=== PATIENT | female | born 1990 | race Caucasian/White ===

== ENCOUNTER 2021-05-23 13:44 | Emergency (ER) | payer OTHER ==
[2021-05-23 15:29] VITALS: RESP 18; TEMP 98.7
--- NOTE | 2021-05-23 16:33 | ED ---
General Adult HPI - General Source: patient, RN notes reviewed Mode of arrival: ambulatory Limitations: no limitations <Joaquin Moya - Last Filed: 05/23/21 15:51> <Scarlett Nicholas - Last Filed: 05/23/21 22:09> - General Stated complaint: mental health Time Seen by Provider: 05/23/21 15:12 - History of Present Illness Initial comments: 30-year-old female presents emergency Department with chief complaint of needing psychiatric evaluation. Patient states that she was recently some Lexapro for anxiety which she states is making her symptoms worse to point where she starting to thoughts of harming herself she states she would never do this presents or why she is having thoughts she states she feels very unsafe at home she's having severe mental breakdown. Patient denies illicit drug use or alcohol abuse. Patient states she had issues with Zoloft in the past the cause similar reaction. Patient states she needs to be on something is when she is not on medications her anxiety is unbearable. (Joaquin Moya) - Related Data Home Medications Medication Instructions Recorded Confirmed ALPRAZolam [Xanax] 0.25 mg PO BID PRN 05/23/21 05/23/21 Albuterol Sulfate [Proair Hfa] 2 puff INHALATION RT-Q4H PRN 05/23/21 05/23/21 Escitalopram [Lexapro] 5 mg PO HS@2000 05/23/21 05/23/21 Allergies Allergy/AdvReac Type Severity Reaction Status Date / Time No Known Allergies Allergy Verified 05/23/21 16:27 Review of Systems ROS Other: All systems not noted in ROS Statement are negative. <Joaquin Moya - Last Filed: 05/23/21 15:51> ROS Other: All systems not noted in ROS Statement are negative. <Scarlett Nicholas - Last Filed: 05/23/21 22:09> ROS Statement: Those systems with pertinent positive or pertinent negative responses have been documented in the HPI. Past Medical History Past Medical History: No Reported History Additional Past Medical History / Comment(s): has had heart concerns in the past, but reports being cleared by cardiology History of Any Multi-Drug Resistant Organisms: None Reported Additional Past Surgical History / Comment(s): kidney surger at age 5 Past Psychological History: Anxiety Smoking Status: Never smoker Past Alcohol Use History: Occasional Past Drug Use History: None Reported <GriffinJoaquin M - Last Filed: 05/23/21 15:51> General Exam Limitations: no limitations General appearance: alert, in no apparent distress, anxious Head exam: Present: atraumatic, normocephalic, normal inspection Eye exam: Present: normal appearance, PERRL, EOMI. Absent: scleral icterus, conjunctival injection, periorbital swelling ENT exam: Present: normal exam, normal oropharynx, mucous membranes moist Neck exam: Present: normal inspection, full ROM. Absent: tenderness, meningismus, lymphadenopathy Respiratory exam: Present: normal lung sounds bilaterally. Absent: respiratory distress, wheezes, rales, rhonchi, stridor Cardiovascular Exam: Present: normal rhythm, tachycardia, normal heart sounds. Absent: systolic murmur, diastolic murmur, rubs, gallop, clicks Neurological exam: Present: alert, oriented X3 Psychiatric exam: Present: anxious Skin exam: Present: warm, dry, intact, normal color. Absent: rash <GriffinJoaquin M - Last Filed: 05/23/21 15:51> Course Vital Signs 05/23/21 05/23/21 15:25 20:05 Temperature 98.7 F Pulse Rate 119 H 97 Respiratory 18 18 Rate Blood Pressure 147/93 127/79 O2 Sat by Pulse 99 98 Oximetry Medical Decision Making - Lab Data Lab Results 05/23/21 Range/Units 19:57 Urine Opiates Screen Not Detected (NotDetected) Ur Oxycodone Screen Not Detected (NotDetected) Urine Methadone Screen Not Detected (NotDetected) Ur Propoxyphene Screen Not Detected (NotDetected) Ur Barbiturates Screen Not Detected (NotDetected) U Tricyclic Antidepress Not Detected (NotDetected) Ur Phencyclidine Scrn Not Detected (NotDetected) Ur Amphetamines Screen Not Detected (NotDetected) U Methamphetamines Scrn Not Detected (NotDetected) U Benzodiazepines Scrn Detected H (NotDetected) Urine Cocaine Screen Not Detected (NotDetected) U Marijuana (THC) Screen Not Detected (NotDetected) Disposition <Joaquin Moya M - Last Filed: 05/23/21 15:51> Is patient prescribed a controlled substance at d/c from ED?: No Time of Disposition: 22:09 <Scarlett Nicholas - Last Filed: 05/23/21 22:09> Clinical Impression: Depression Disposition: HOME SELF-CARE Condition: Stable Instructions (If sedation given, give patient instructions): Depression (DC) Referrals: Familia Garnica MD [Primary Care Provider] - 1-2 days
[2021-05-23] MEDS ORDERED: ACETAMINOPHEN TAB 500 MG TAB PO STA (18:30)
[2021-05-23 20:09] LABS: Amphetamine Screen,Urine Not Detected (NotDetected); Barbiturate Screen,Urine Not Detected (NotDetected); Benzodiazepines Screen,Urine Detected (NotDetected); Cocaine Screen,Urine Not Detected (NotDetected); Methadone Screen, Urine Not Detected (NotDetected); Opiate Screen,Urine Not Detected (NotDetected); Oxycodone Screen, Urine Not Detected (NotDetected); Phencyclidine Screen,Urine Not Detected (NotDetected); Tricyclic Antidepressant,Urine Not Detected (NotDetected); Urn Cannabinoid Scrn Not Detected (NotDetected)
[2021-05-23 22:18] VITALS: BP 130/84; PULSE 89
== END 2021-05-23 22:18 | disposition home or self-care (01) ==
LOC: EC 13:44
DX: F32.A Depression, unspecified (principal); F41.9 Anxiety disorder, unspecified
CPT/HCPCS: 80306; 82075; 99284